=== PATIENT | male | born 1990 | race American Indian/Alaskan Native ===

== ENCOUNTER 2020-09-16 12:03 | Emergency (ER) | payer MEDICAID ==
[~2020-09-16] VITALS: Ht 172.7 cm; Wt 60.0 kg
[2020-09-16 16:11] LABS: BASOPHILS % (AUTO) 0.5 % (0-1); EOSINOPHILS # (AUTO) 0.2 X10'3 (0-0.9); EOSINOPHILS % (AUTO) 2.1 % (0-6); HEMATOCRIT 37.3 % (42.0-52.0); HEMOGLOBIN 12.2 g/dl (14.0-17.9); LYMPHOCYTES # (AUTO) 1.9 X10'3 (1.1-4.8); LYMPHOCYTES % (AUTO) 25.1 % (21-51); MEAN CORPUSCULAR HEMOGLOBIN 29.1 PG (27.0-31.0); MEAN CORPUSCULAR HGB CONC 32.7 g/dL (33.0-36.5); MEAN CORPUSCULAR VOLUME 88.9 FL (78-98); MEAN PLATELET VOLUME 7.5 FL (7.4-10.4); MONOCYTES # (AUTO) 0.7 X10'3 (0-0.9); MONOCYTES % (AUTO) 9.1 % (2-12); NEUTROPHILS # (AUTO) 4.8 X10'3 (1.8-7.7); NEUTROPHILS % (AUTO) 63.2 % (42-75); PLATELET COUNT 206 X10'3 (140-440); RED CELL DISTRIBUTION WIDTH 14.9 % (11.5-14.5); WHITE BLOOD COUNT 7.6 X10'3 (4.5-11.0)
[2020-09-16 16:24] LABS: ALANINE AMINOTRANSFERASE 26 U/L (12-78); ALBUMIN 2.9 G/DL (3.4-5.0); ALBUMIN/GLOBULIN RATIO 0.9 (1.1-1.5); ALKALINE PHOSPHATASE 78 IU/L (46-116); ANION GAP 7 (8-16); ASPARTATE AMINO TRANSFERASE 26 U/L (10-37); BILIRUBIN,TOTAL 0.3 MG/DL (0.1-1.0); BLOOD UREA NITROGEN 11 MG/DL (7-18); CALCIUM 8.4 MG/DL (8.5-10.1); CHLORIDE 105 MMOL/L (99-107); CREATININE 0.55 MG/DL (0.60-1.10); GLUCOSE 100 MG/DL (70-104); POTASSIUM 3.4 MMOL/L (3.5-5.1); SODIUM 142 MMOL/L (135-145); TOTAL CARBON DIOXIDE 30.3 MMOL/L (24-32); TOTAL PROTEIN 6.1 G/DL (6.4-8.2); eGFR > 90 ML/MIN
[2020-09-16 16:34] LABS: ETHANOL < 0.010 GM/DL (0.0-0.010)
[2020-09-16 17:13] LABS: CLARITY,URINE CLEAR (Clear); COLOR,URINE YELLOW (Yellow); GLUCOSE, URINE NEGATIVE (Neg); KETONES,URINE NEGATIVE (Neg); LEUKOCYTE ESTERASE ,URINE NEGATIVE (Neg); NITRITES, URINE NEGATIVE (Neg); OCCULT BLOOD,URINE NEGATIVE (Neg); PROTEIN,URINE NEGATIVE (Neg)
[2020-09-16 17:20] LABS: UA COLLECTION TYPE NON-SPECIFIED
[2020-09-16 17:24] LABS: URINE AMPHETAMINE SCREEN POSITIVE (Neg); URINE BARBITUATE SCREEN NEGATIVE (Neg); URINE BENZODIAZEPINES SCREEN POSITIVE (Neg); URINE CANNABINOID SCREEN POSITIVE (Neg); URINE COCAINE SCREEN NEGATIVE (Neg); URINE METHADONE SCREEN NEGATIVE (Neg); URINE OPIATE SCREEN NEGATIVE (Neg); URINE PHENCYCLIDINE SCREEN NEGATIVE (Neg)
--- NOTE | 2020-09-16 18:00 | NUR ---
pt is resting
[2020-09-16] MEDS: OLANZapine 2.5MG tablet PO SCH (19:04)
--- NOTE | 2020-09-16 20:00 | NUR ---
Pt is sleeping, keeps his head under the covers. no needs at this time.
--- NOTE | 2020-09-16 22:00 | NUR ---
Pt given turkey sandwich, juice, cookies for snack. 10 mg zyprexa given.
--- NOTE | 2020-09-16 23:48 | NUR ---
Pt is resting in bed, no s/s distress noted.
--- NOTE | 2020-09-17 01:13 | NUR ---
pt continues to sleep, no distress noted, rr unlabored.
--- NOTE | 2020-09-17 04:02 | NUR ---
pt is sleeping, no s/s of distress noted.
--- NOTE | 2020-09-17 05:49 | NUR ---
Pt appears to be sleeping, no distress noted.
[2020-09-17] MEDS: OLANZapine 2.5MG tablet PO SCH (09:34)
[2020-09-17] MEDS: olanzapine 10mg tablet PO SCH (09:48)
--- NOTE | 2020-09-17 18:46 | NUR ---
The patient has been sleeping on his bed but easily awakened for the evening nursing assessment. He did appear tired and kept his eyes closed during assessment. He stated "I want to admit myself into a [facility]" He statead tht he is hearing voices "all the time" He stated that he has been on the street and has no source of income.
--- NOTE | 2020-09-17 20:00 | NUR ---
The patient appears to be sleeping
[2020-09-17] MEDS ORDERED: NO HOME MEDS (22:26)
--- NOTE | 2020-09-17 22:27 | NUR ---
The patient was up to the bathroom and he had a snack. Denies needs at this time.
--- NOTE | 2020-09-17 23:04 | NUR ---
The patient appears to be sleeping
--- NOTE | 2020-09-18 00:41 | NUR ---
The patient appears to be sleeping
--- NOTE | 2020-09-18 01:47 | NUR ---
The patient appears to be sleeping
--- NOTE | 2020-09-18 03:49 | NUR ---
The patient appears to be sleeping
--- NOTE | 2020-09-18 06:35 | NUR ---
pt is asleep, regular breathing observed, no needs at this time
--- NOTE | 2020-09-18 07:14 | NUR ---
pt awake, requested [facility], was given them, no needs at this time
--- NOTE | 2020-09-18 07:46 | NUR ---
pt is asleep, no needs at this time
[2020-09-18] MEDS: olanzapine 10mg tablet PO SCH (08:15)
--- NOTE | 2020-09-18 08:15 | NUR ---
pt took medications and ate breakfast with no difficulty
--- NOTE | 2020-09-18 09:39 | NUR ---
pt is supine in bed, regular breathing abserved, no needs at this time
--- NOTE | 2020-09-18 10:41 | NUR ---
pt is sleeping, regular breathing present, no needs at this time
--- NOTE | 2020-09-18 11:43 | NUR ---
pt is asleep, regular breathing present, no needs at this time
--- NOTE | 2020-09-18 13:16 | NUR ---
pt is eating his lunch, no needs at this time
--- NOTE | 2020-09-18 14:30 | NUR ---
pt is asleep, regular breathing present, no needs at this time
--- NOTE | 2020-09-18 16:26 | NUR ---
pt has ambulated to the bathroom, calm, no needs at this time
--- NOTE | 2020-09-18 17:20 | NUR ---
pt up to the nurses station for snacks, was given snacks, no other needs at this time
--- NOTE | 2020-09-18 19:30 | NUR ---
One to one with the patient to assess for severity of mental health symptoms. The patient is alert and oriented. He is pleasant during the assessment. He reports continued voices but states they are less. At times he states the voices tell him to harm himself. He stated that tonight his mood was "alright" He reports continued suicidal thoughts "all the time" and feels that his family doesn't care about him. He stated he "probably would jump in front of a bus"
--- NOTE | 2020-09-18 21:55 | NUR ---
The patient appears to be sleeping
--- NOTE | 2020-09-18 23:23 | NUR ---
The patient appears to be sleeping
--- NOTE | 2020-09-19 01:13 | NUR ---
The patient appears to be sleeping
--- NOTE | 2020-09-19 03:17 | NUR ---
The patient is resting on his bed
--- NOTE | 2020-09-19 04:48 | NUR ---
The patient appears to be sleeping
--- NOTE | 2020-09-19 06:40 | NUR ---
rcvd report, pt is sleeping, regular breathing present, no needs at this time
--- NOTE | 2020-09-19 08:02 | NUR ---
pt is supine in bed, sleeping, regular breathing presnt, no needs at this time
[2020-09-19] MEDS: olanzapine 10mg tablet PO SCH (08:20)
--- NOTE | 2020-09-19 09:00 | NUR ---
pt is sleeping, regular breathing present, no needs at this time
--- NOTE | 2020-09-19 09:50 | NUR ---
called [facility] pt has not been accepted upstairs, plan is to have [facility] office re eval pt
--- NOTE | 2020-09-19 09:55 | NUR ---
pt is sleeping, no needs at this time
--- NOTE | 2020-09-19 11:06 | NUR ---
pt is supine in bed, no needs at this time
--- NOTE | 2020-09-19 12:41 | NUR ---
pt is resting in bed, calm, no needs at this time
--- NOTE | 2020-09-19 13:07 | NUR ---
pt is asleep, regular breathing present, no needs at this time
--- NOTE | 2020-09-19 14:45 | NUR ---
Patient ambulatory to [facility], steady gait. No distress observed. Continue to monitor.
--- NOTE | 2020-09-19 16:24 | NUR ---
Patient resting in bed with eyes open. No distress observed. Continue to monitor.
--- NOTE | 2020-09-19 19:00 | NUR ---
The patient is updated on the plan of care and pending transfer to [facility] this evening.
[2020-09-19 21:06] VITALS: BP 115/73
[2020-09-19] MEDS ORDERED: OLAN10TA3 PO (21:46)
== END 2020-09-19 21:09 | disposition home or self-care (01) ==
LOC: ER 12:05
DX: R45.851 Suicidal ideations (principal); Z20.822 Contact with and (suspected) exposure to COVID-19; F20.9 Schizophrenia, unspecified; Z88.8 Allergy status to other drugs, medicaments and biological substances
CPT/HCPCS: 36415; 80053; 80305; 80320; 81003; 84439; 84443; 85025; 87426; 99285